=== PATIENT | female | born 1990 | race Hispanic/Latino ===

== ENCOUNTER 2019-02-26 16:48 | Inpatient (IN) | payer OTHER ==
[2019-02-26 17:21] VITALS: BMI 34.1
[2019-02-26] MEDS ORDERED: FLU VACC QS2019-20(6MOS UP)/PF 60 MCG/0.5 ML SYRINGE IM ONE (17:30)
[2019-02-26] MEDS ORDERED: Ibuprofen 800 MG TAB PO PRN (18:15)
[2019-02-26] MEDS ORDERED: NS / Oxytocin 40 units/1000ml 1,000 ML IV SCH (18:15)
[2019-02-26] MEDS ORDERED: Penicillin G Potassium 5 MILL.UNITS in Sodium Chloride 0.9% 100 ML IVPB SCH (18:15)
[2019-02-26] MEDS ORDERED: Lidocaine 1% (PF) 30 ML VIAL SC PRN (18:15)
[2019-02-26] MEDS ORDERED: NS w/ Oxytocin 10 units 500 ML IV SCH ×2 (18:15)
[2019-02-26 18:28] LABS: Hemoglobin 11.2 g/dL (12.0-16.0); Mean Corpuscular HGB CONC 34.1 g/dL (32.0-36.0); Mean Corpuscular Hemoglobin 28.5 pg (27.0-31.0); Mean Corpuscular Volume 83.5 fL (78.0-98.0); Mean Platelet Volume 10.6 fL (7.4-10.4); Platelet Count 164 thou/uL (130-400); Red Blood Cell (RBC) Count 3.94 mill/uL (4.20-5.40); White Blood Cell (WBC) Count 10.1 thou/uL (4.8-10.8)
[2019-02-26] MEDS ORDERED: Fentanyl 4 mcg/Bup 0.1% Cadd 100 ML ONE (18:58)
[2019-02-26 19:05] LABS: Syphilis Antibody Nonreactive (Nonreactive); Syphilis Antibody Index 0.05 S/CO (<1.00 Non-Reactive)
[2019-02-26 19:06] LABS: HBSAg Index 0.21 S/CO (0-0.99); Hep B Surf Ag Non-Reactive S/CO (NonReactive)
[2019-02-26] MEDS ORDERED: Acetaminophen 325 MG TAB PO SCH (21:00)
[2019-02-26] MEDS ORDERED: Ondansetron PF 4 MG/2 ML Vial ONE (21:12)
[2019-02-26] MEDS ORDERED: diphenhydrAMINE 50 MG/ML VIAL IVP PRN (21:27)
[2019-02-26] MEDS ORDERED: Ondansetron PF 4 MG/2 ML Vial IVP PRN (21:27)
[2019-02-26] MEDS ORDERED: ePHEDrine/0.9% NaCl/PF SYRINGE 50 mg/10 ml SLOW IVP PRN (21:27)
[2019-02-26] MEDS ORDERED: Naloxone HCl 0.4 mg/ml Vial IVP PRN ×2 (21:27)
[2019-02-26] MEDS ORDERED: Acetaminophen 325 MG TAB PO PRN (21:27)
[2019-02-26] MEDS ORDERED: Communication Order-Pharmacy FS SCH (21:27)
[2019-02-26] MEDS ORDERED: Fentanyl 4 mcg/Bupivacaine 0.1% Cassette 100 ML EPIDURAL SCH (21:27)
[2019-02-26] MEDS ORDERED: Lactated Ringer's 500 ML IV PRN (21:27)
[2019-02-26] MEDS ORDERED: Promethazine HCl 25 MG/ML VIAL IM PRN (21:27)
[2019-02-26] MEDS ORDERED: Ondansetron PF 4 MG/2 ML Vial SLOW IVP SCH (21:30)
[2019-02-26] MEDS: Penicillin G 2.5 MILL.units 2.5 MILL.UNITS in Premix Bag 1 BAG IVPB SCH (21:50)
[2019-02-27] MEDS ORDERED: Fentanyl 4 mcg/Bup 0.1% Cadd 100 ML ONE (02:26)
[2019-02-27] MEDS: Penicillin G 2.5 MILL.units 2.5 MILL.UNITS in Premix Bag 1 BAG IVPB SCH ×3 (03:00→17:59)
[2019-02-27] MEDS ORDERED: Lactated Ringer's 1,000 ML IV SCH (07:45)
[2019-02-27] MEDS ORDERED: Lidocaine 1% (PF) 30 ML VIAL ONE (09:24)
[2019-02-27] MEDS ORDERED: NS / Oxytocin 40 units/1000ml 1,000 ML ONE (09:24)
[2019-02-27] MEDS ORDERED: Misoprostol 200 MCG TAB ONE (09:29)
[2019-02-27] MEDS ORDERED: Carboprost 250 MCG/ML AMP ONE (09:29)
--- NOTE | 2019-02-27 09:52 | PDOC.OPDEL ---
OB Operative/Delivery Note Delivery Dr/Surgeon: Olya Pre-Delivery Diagnosis: active labor Procedure/Post Delivery Dx: spontaneous vaginal delivery Anesthesia: epidural - Additional Findings/Plan Placenta delivered: spontaneous Repaired Obstetrical Laceration: 2nd degree Estimated blood loss: 300 Compilations/Other Findings: CTSP for terminal bradycardia. Pt. urged to push with resulting of infant with good tone over 2* MLE. 100- 200 cc clot passed prior to delivery of placenta c/w terminal abruption. Placenta intact Jareth. Boggy uterus responded to uterine massage, pit drip and Methergine 0.[address] Cottrell arrived at this point. His repair to follow. Placenta to Path. Post delivery plan: routine recovery
[2019-02-27 10:04] LABS: Actual Bicarbonate (HCO3a) 23.3 mEq/L (22-28); Actual Bicarbonate (HCO3v) 25 mEq/L (22-28); Base Excess -4.8 mEq/L (-2.0 to +3.0); Base Excess (BEa) -5.2 mEq/L (-2.0 to +3.0)
[2019-02-27 10:05] LABS: pH (Cord, venous) 7.18 (7.32-7.43)
[2019-02-27] MEDS ORDERED: Methylergonovine 0.2 MG/ML VIAL ONE (10:49)
[2019-02-27] MEDS ORDERED: Adacel (T-DAP) 0.5 ML SYRINGE IM ONE (12:25)
[2019-02-27] MEDS ORDERED: Varicella virus, LIVE 0.5 ML VIAL SC ONE (12:25)
[2019-02-27] MEDS ORDERED: Benzocaine-Menthol 82.5 ML CAN TOP PRN (12:25)
[2019-02-27] MEDS ORDERED: hydrALAZINE 20 MG/ML VIAL SLOW IVP PRN (12:25)
[2019-02-27] MEDS ORDERED: Measles/Mumps/Rubella 10 MCG/0.5 ML VIAL SC ONE (12:25)
[2019-02-27] MEDS ORDERED: Methylergonovine 0.2 MG/ML VIAL IM PRN (12:25)
[2019-02-27] MEDS ORDERED: Zolpidem Tartrate 5 MG TAB PO PRN (12:25)
[2019-02-27] MEDS ORDERED: Promethazine HCl 25 MG/ML VIAL IM PRN (12:25)
[2019-02-27] MEDS ORDERED: HYDROcodone/Acetaminophen 5/325 mg Tablet PO PRN (12:25)
[2019-02-27] MEDS ORDERED: Ondansetron PF 4 MG/2 ML Vial IVP PRN (12:25)
[2019-02-27] MEDS ORDERED: Milk Of Magnesia 30 ML UDCUP PO PRN (12:25)
[2019-02-27] MEDS ORDERED: Bisacodyl 10 MG SUPP PR PRN (12:25)
[2019-02-27] MEDS ORDERED: NS / Oxytocin 40 units/1000ml 1,000 ML IV SCH (12:25)
[2019-02-27] MEDS ORDERED: Misoprostol 200 MCG TAB VAG PRN (12:25)
[2019-02-27] MEDS ORDERED: diphenhydrAMINE 25 MG CAP PO PRN (12:25)
[2019-02-27] MEDS ORDERED: Lanolin Ointment 7 GM TUBE TOP PRN (12:25)
[2019-02-27] MEDS ORDERED: Preparation H Ointment 28 GM TUBE PR PRN (12:25)
[2019-02-27] MEDS: HYDROcodone/Acetaminophen 5/325 mg Tablet PO PRN ×3 (13:05→22:19)
[2019-02-27] MEDS: Ibuprofen 800 MG TAB PO SCH ×2 (15:03→22:19)
[2019-02-27] MEDS: Ferrous Sulfate 325 MG TAB PO SCH (17:58)
[2019-02-27] MEDS ORDERED: FLU VACC QS2019-20(6MOS UP)/PF 60 MCG/0.5 ML SYRINGE IM ONE (18:00)
[2019-02-27 21:30] LABS: #Basophils 0.1 thou/uL (0.0-0.2); #Eosinphils 0.1 thou/uL (0.0-0.7); #Lymphocytes 1.1 thou/uL (1.20-3.40); #Monocytes 0.5 thou/uL (0.11-0.59); #Neutrophils 8.9 thou/uL (1.40-6.50); %Basophils 0.5 % (0.0-1.0); %Eosinophils 0.5 % (0.0-10.0); %Lymphocytes 10.6 % (21.0-51.0); %Monocytes 4.6 % (0.0-10.0); %Neutrophils 83.9 % (42.0-75.0); Hemoglobin 9.7 g/dL (12.0-16.0); Mean Corpuscular Hemoglobin 28.7 pg (27.0-31.0); Mean Corpuscular Volume 84.3 fL (78.0-98.0); Mean Platelet Volume 10.1 fL (7.4-10.4); Platelet Count 139 thou/uL (130-400); RBC Distribution Width 12.8 % (11.5-14.5); Red Blood Cell (RBC) Count 3.38 mill/uL (4.20-5.40); White Blood Cell (WBC) Count 10.6 thou/uL (4.8-10.8)
[2019-02-27 21:51] LABS: ALT (SGPT) 10 U/L (8-55); AST (SGOT) 19 U/L (5-34); Albumin 2.6 g/dL (3.5-5.0); Alkaline Phosphatase 158 U/L (40-110); Anion Gap 9 mmol/L (10-20); BUN (Urea Nitrogen) 7 mg/dL (7.0-18.7); Bilirubin, Total Less than 0.2 mg/dL (0.2-1.2); Calc. Creatinine Clearance 222 mL/min (70-130); Calcium 7.6 mg/dL (7.8-10.44); Carbon Dioxide 21 mmol/L (22-29); Chloride 111 mmol/L (98-107); Estimated GFR-MDRD Greater than 90; Globulin 2.7 g/dL (2.4-3.5); Glucose 100 mg/dL (70-105); Protein, Total 5.3 g/dL (6.0-8.3); Sodium 137 mmol/L (136-145)
--- NOTE | 2019-02-27 22:10 | ULT ---
Sonogram abdomen limited HISTORY: Abdominal pain. Evaluate for free fluid. FINDINGS: Small amount of free fluid is demonstrated within each quadrant of the abdomen and within t he pelvis. Estimated at 1 to 2 L.
--- NOTE | 2019-02-27 22:12 | ULT ---
Pelvic sonogram transabdominal imaging HISTORY: Recent delivery. Pelvic pain. FINDINGS .: Uterus has a heterogeneous echotexture and measures up to 16.4 cm. Endometrium is thin wi thout fluid evident. Ovaries not visualized. Small amount of free fluid is apparent within the pelvis. IMPRESSION: Expected appearance of the pelvis.
[2019-02-27] MEDS: Docusate Calcium (SURFAK) 240 MG CAP PO SCH (23:06)
[2019-02-27] MEDS ORDERED: Morphine 4 MG/ML VIAL SLOW IVP SCH (23:15)
[2019-02-27] MEDS ORDERED: Sodium Chloride 0.9% 10 ML ONE (23:22)
--- NOTE | 2019-02-27 23:35 | RAD ---
Chest one view HISTORY: Dyspnea. FINDINGS: Cardiac silhouette is magnified by projection. Pulmonary vasculature is unremarkable. Media stinum is midline. No confluent space consolidation or evidence of pneumothorax. IMPRESSION: Normal exam.
--- NOTE | 2019-02-28 00:04 | CT ---
CT abdomen and pelvis noncontrast HISTORY: Abdominal pain. Recent vaginal delivery. Minimal bibasilar dependent lung atelectasis. There are tiny pockets of gas within the nondependent p ortion of the peritoneal cavity. Small pockets also within the pelvis adjacent to the urinary bladder and uterus which is enlarged and heterogeneous, consistent with recent delivery. Small amount of free fluid is also present within the pelvis and extends up the right paracolic gutter to the liver. Hyperdense material in the dependent portion of the gallbladder lumen. Postoperative changes of the stomach. No evidence of bowel obstruction. Gas is present within the central spinal canal of the lumbar spine from recent epidural injection. IMPRESSION: Small pockets of intraperitoneal gas and small amount of intraperitoneal fluid, likely re lated to recent delivery. Given the very small amount, continued follow-up would likely be prudent. Central canal gas from recent epidural injection. Cholelithiasis.
[2019-02-28] MEDS: Simethicone Chewable 80 MG TAB PO PRN ×3 (00:34→21:02)
[2019-02-28 03:00] LABS: #Eosinphils 0.1 thou/uL (0.0-0.7); #Lymphocytes 1.8 thou/uL (1.20-3.40); #Monocytes 0.4 thou/uL (0.11-0.59); %Basophils 0.4 % (0.0-1.0); %Eosinophils 0.8 % (0.0-10.0); %Lymphocytes 19.5 % (21.0-51.0); %Monocytes 4.2 % (0.0-10.0); Hemoglobin 9.1 g/dL (12.0-16.0); Mean Corpuscular HGB CONC 33.6 g/dL (32.0-36.0); Mean Corpuscular Hemoglobin 28.8 pg (27.0-31.0); Mean Corpuscular Volume 85.8 fL (78.0-98.0); Mean Platelet Volume 10.3 fL (7.4-10.4); Platelet Count 130 thou/uL (130-400); RBC Distribution Width 12.9 % (11.5-14.5); Red Blood Cell (RBC) Count 3.17 mill/uL (4.20-5.40); White Blood Cell (WBC) Count 9.3 thou/uL (4.8-10.8)
[2019-02-28 03:01] LABS: Hemoglobin 9.2 g/dL (12.0-16.0); Mean Corpuscular HGB CONC 33.1 g/dL (32.0-36.0); Mean Corpuscular Hemoglobin 28.5 pg (27.0-31.0); Mean Platelet Volume 10.6 fL (7.4-10.4); Platelet Count 133 thou/uL (130-400); Red Blood Cell (RBC) Count 3.25 mill/uL (4.20-5.40); White Blood Cell (WBC) Count 9.4 thou/uL (4.8-10.8)
[2019-02-28] MEDS ORDERED: Sodium Chloride 0.9% 10 ML ONE ×3 (04:05→23:37)
[2019-02-28] MEDS: Morphine 4 MG/ML VIAL SLOW IVP PRN ×2 (04:10→15:35)
[2019-02-28] MEDS: Ibuprofen 800 MG TAB PO SCH ×3 (05:42→20:57)
[2019-02-28 06:22] LABS: #Eosinphils 0.1 thou/uL (0.0-0.7); #Lymphocytes 1.5 thou/uL (1.20-3.40); #Monocytes 0.3 thou/uL (0.11-0.59); #Neutrophils 6.2 thou/uL (1.40-6.50); %Basophils 0.2 % (0.0-1.0); %Eosinophils 1.4 % (0.0-10.0); %Lymphocytes 18.4 % (21.0-51.0); %Monocytes 4.1 % (0.0-10.0); %Neutrophils 75.9 % (42.0-75.0); Hemoglobin 9.3 g/dL (12.0-16.0); Mean Corpuscular HGB CONC 33.1 g/dL (32.0-36.0); Mean Corpuscular Hemoglobin 28.4 pg (27.0-31.0); Mean Corpuscular Volume 85.8 fL (78.0-98.0); Mean Platelet Volume 10.2 fL (7.4-10.4); Platelet Count 133 thou/uL (130-400); Red Blood Cell (RBC) Count 3.27 mill/uL (4.20-5.40); White Blood Cell (WBC) Count 8.2 thou/uL (4.8-10.8)
[2019-02-28] MEDS: Docusate Calcium (SURFAK) 240 MG CAP PO SCH ×2 (07:33→20:56)
[2019-02-28] MEDS: HYDROcodone/Acetaminophen 5/325 mg Tablet PO PRN ×4 (07:33→22:09)
[2019-02-28] MEDS: Ferrous Sulfate 325 MG TAB PO SCH ×2 (07:33→17:07)
--- NOTE | 2019-02-28 16:14 | ULT ---
RIGHT UPPER QUADRANT ULTRASOUND CLINICAL HISTORY: Severe right-sided abdominal pain while lying flat. COMPARISON: CT the abdomen and pelvis without contrast dated February 27, 2019 at 11:50 PM and a right upper quadrant ultrasound dated February 27, 2019 9:35 PM FINDINGS: Liver:There is mild intrahepatic biliary ductal dilatation now present. The liver is mildly enlarged measuring 20 cm. Intrahepatic bile ducts: There is mild intrahepatic biliary ductal dilatation which is new. Common bile duct: 4.3 mm. Gallbladder: The gallbladder is moderately distended now measuring 11.3 cm in its greatest longitudin al dimension. There are numerous layered stones within the gallbladder. There is mild gallbladder wall thickening measuring 3.3 mm. No definite pericholecystic fluid is evident. Ramirez's sign:Sonographic Ramirez's sign could not be assessed due to patient being in continuous ventura re pain. Main portal vein:Patent with hepatopedal flow. Pancreas:Obscured Right kidney: Right kidney measures 10.3 x 4.5 x 4.9 cm. No focal renal lesion or hydronephrosis. Additional findings: None. IMPRESSION: Findings suspicious for acute calculus cholecystitis. The gallbladder is now moderately distended wit h numerous layering stones and gallbladder wall thickening. Sonographic Ramirez sign could not be definitely assessed due to the patient being in continuous severe pain during the examination. There has been interval development of mild intrahepatic biliary ductal dilatation. The common bile duct is of normal caliber.
--- NOTE | 2019-02-28 17:20 | PRG ---
DATE OF SERVICE: 02/28/2019 I am seeing Ms. Trejo, at bedside is her and her nurse. She just returned from the abdominal ultrasound, which reveals moderately distended gallbladder with a 3.3 mm gallbladder wall thickening, but no pericholecystic fluid present. Intraluminal gallstones also noted. Common bile duct is normal at 4.3 mm in diameter. Multiple intraluminal gallstones also noted. I discussed the above findings with Ms. Trejo and her . In the absence of normal LFTs and normal white blood cell count and what started as a vague right lower quadrant and ultimately right upper quadrant abdominal pain, obtaining a HIDA scan will be important to rule out cystic ductal obstruction, which if present will warrant laparoscopic cholecystectomy in this hospital setting. Alternatively, the patient could be treated conservatively with the hope that there is no recurrent postprandial abdominal pain. If HIDA scan and ultimately laparoscopic cholecystectomy are undertaken, I have informed the patient and her of the potential risks and benefits of the surgery to include, but not limited to bleeding, infection, injury to bile duct or surrounding structures. The patient and her have indicated understanding information I provided her today in the presence of her nurse. She and her will deliberate over this and determine which options to take. Job ID: [id number]
--- NOTE | 2019-02-28 20:36 | CON ---
DATE OF CONSULTATION: 02/28/2019 REQUESTING PHYSICIAN: Nadeem Cottrell MD. HISTORY OF PRESENT ILLNESS: This is a 28-year-old woman who is day # 1, status post spontaneous vaginal delivery. Approximately 10 hours after delivery , the patient developed sudden onset right lower quadrant abdominal pain, which radiated to right flank and upwards to the right chest with difficulty breathing. Overnight, the pain has subsided somewhat and now mostly right upper quadrant abdominal pain, which intensified yesterday after eating. Pain is associated with some nausea, but no emesis. Today, she rates her pain at 6-7/10. She denies any fevers or chills. She currently denies any dyspnea or syncope. PAST MEDICAL HISTORY: Previously hypertensive, currently on no medications. 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 SOCIAL HISTORY: She had approximately 10 pack cigarette smoking history and quit smoking one year ago. She denies any ethanol or illicit drug abuse. PRE-HOSPITAL MEDICATIONS: Includes vitamins. ALLERGIES: THE PATIENT DENIES ANY KNOWN DRUG ALLERGIES. REVIEW OF SYSTEMS: Ten-point review of systems essentially unremarkable except as stated in past medical history and chief complaint. PHYSICAL EXAMINATION: GENERAL: Reveals a 28-year-old normally developed woman, who is otherwise coherent and interactive and appears stated age. The patient is alert and oriented x3, appears to be in no acute distress at time of my evaluation. VITAL SIGNS: Include blood pressure 105/59, pulse 58, respiratory rate is 18, temperature 98.2 degrees Fahrenheit, oxygen saturation 98% on room air. HEART: Reveals regular rate and rhythm. LUNGS: Clear to auscultation bilaterally. Breathing, regular and nonlabored. ABDOMEN: Soft and immediately . Uterus palpated below the umbilicus. She has moderate right upper quadrant tenderness to palpation with no Ramirez sign or peritoneal signs on examination. NEUROLOGIC: Reveals no focal deficits present. LABORATORY FINDINGS: Today include a CBC with 8200 white blood cells, hemoglobin and hematocrit 9.3 and 28.0 respectively. Platelet count is 133,000. I have personally reviewed CT scan of the abdomen and pelvis, which was obtained last night revealing a small amount of free fluid in the pelvis with small intraperitoneal gas of undetermined etiology. There is some hyperdense material in the gallbladder lumen, likely gallstones versus dense sludge. IMPRESSION: 1. Right upper quadrant abdominal pain of undetermined etiology, likely biliary colic. 2. day #1 for spontaneous vaginal delivery. 3. Acute blood loss anemia, stable. RECOMMENDATIONS: Agree with right upper quadrant abdominal ultrasound to rule out biliary disease. General Surgery will continue to follow the patient and make further recommendations following completion of the right upper quadrant abdominal ultrasound. If warranted, laparoscopic cholecystectomy will be recommended. Above findings and plan discussed with the patient and her at bedside. They indicated understanding of information given. I have answered their questions. Thank you again, Dr. Cottrell for allowing me the opportunity to participate in the care of this patient. Job ID: [id number] [facility]
[2019-02-28] MEDS ORDERED: Calcium Carbonate 500 MG ChewTAB PO PRN (20:49)
[2019-03-01] MEDS ORDERED: Sodium Chloride 0.9% 10 ML ONE ×2 (00:01→00:47)
[2019-03-01] MEDS: Sodium Chloride 0.9% 1,000 ML IV SCH ×3 (00:30→12:41)
--- NOTE | 2019-03-01 01:19 | PRG ---
DATE OF SERVICE: 02/28/2019 SUBJECTIVE: The patient was seen this evening, sitting up in bed, no signs of acute distress. She is day 1. She reports she has right upper quadrant abdominal pain when she moves and she did have increased pain after she ate as well. Otherwise, she reports she is doing better than before. OBJECTIVE: VITAL SIGNS: Temperature 98.6, pulse 82, respirations 12, oxygen saturation 98% on room air, blood pressure 112/62. GENERAL: Well-appearing young female, sitting up in bed with no signs of acute distress. PULMONARY: No signs of acute respiratory distress. ASSESSMENT: 1. Acute right upper quadrant abdominal pain, likely secondary to acute acalculous cholecystitis. 2. Post day 1. PLAN: The patient will be n.p.o. after midnight. She will have normal saline at 120 an hour. She is pending a HIDA scan to be completed in the morning. IV morphine has been discontinued as it cannot be given before a HIDA scan is completed. After the scan is complete, the patient can have IV morphine again. Dr. Dickey will re-evaluate the patient and update her on the plan after the HIDA scan is completed. If you have any questions or concerns in the meantime, CARE ASSISTANT team or nursing can reach out to Dr. Dickey's team by paging the trauma pager. This patient was discussed with Dr. Dickey before this dictation. Job ID: [id number]
[2019-03-01] MEDS: HYDROcodone/Acetaminophen 5/325 mg Tablet PO PRN ×2 (04:04→12:41)
[2019-03-01 05:29] LABS: ALT (SGPT) 13 U/L (8-55); AST (SGOT) 18 U/L (5-34); Albumin 2.8 g/dL (3.5-5.0); Alkaline Phosphatase 151 U/L (40-110); Anion Gap 9 mmol/L (10-20); BUN (Urea Nitrogen) 5 mg/dL (7.0-18.7); Bilirubin, Direct 0.1 mg/dL (0.1-0.3); Bilirubin, Total 0.2 mg/dL (0.2-1.2); Calc. Creatinine Clearance 207 mL/min (70-130); Calcium 8.2 mg/dL (7.8-10.44); Carbon Dioxide 25 mmol/L (22-29); Chloride 108 mmol/L (98-107); Estimated GFR-MDRD Greater than 90; Glucose 74 mg/dL (70-105); Lipase 18 U/L (8-78); Magnesium 1.6 mg/dL (1.6-2.6); Phosphorus 3.2 mg/dL (2.3-4.7); Potassium 4.2 mmol/L (3.5-5.1); Protein, Total 5.9 g/dL (6.0-8.3); Sodium 138 mmol/L (136-145)
[2019-03-01] MEDS: Ibuprofen 800 MG TAB PO SCH ×2 (06:33→14:29)
[2019-03-01] MEDS ORDERED: Lidocaine 1% PF 5 ML VIAL ONE (09:23)
[2019-03-01] MEDS ORDERED: PROPOFOL 200 MG/20 ML VIAL ONE (09:23)
[2019-03-01] MEDS ORDERED: Dexamethasone 20 MG/5 ML VIAL ONE (09:23)
[2019-03-01] MEDS ORDERED: Rocuronium Bromide 10 MG/ML (10ML VIAL) ONE (09:23)
[2019-03-01] MEDS ORDERED: Glycopyrrolate 0.2 MG/ML 5 ML SYRINGE ONE (09:23)
[2019-03-01] MEDS ORDERED: Ondansetron PF 4 MG/2 ML Vial ONE (09:23)
[2019-03-01] MEDS ORDERED: Ketorolac Tromethamine 30 MG/ML VIAL ONE (09:23)
--- NOTE | 2019-03-01 11:31 | NM ---
HEPATOBILIARY SCAN: HISTORY:Right upper quadrant pain RADIOPHARMACEUTICAL: 5.5 mCi Technetium 99m Mebrofenin injected intravenously FINDINGS: There is normal tracer extraction by the liver with normal excretion into the biliary tracts and smal l bowel loops and normal filling of the gallbladder. The calculated gallbladder ejection fraction following an oral fatty meal measures 4%. IMPRESSION:Chronic cholecystitis/gallbladder dyskinesia
[2019-03-01] MEDS: Docusate Calcium (SURFAK) 240 MG CAP PO SCH ×2 (12:09→23:10)
[2019-03-01] MEDS: Ferrous Sulfate 325 MG TAB PO SCH ×2 (12:09→15:26)
[2019-03-01] MEDS: Simethicone Chewable 80 MG TAB PO PRN (15:29)
--- NOTE | 2019-03-01 17:11 | PRG ---
DATE OF SERVICE: 03/01/2019 SUBJECTIVE: Ms. Trejo is a 28-year-old woman, who is day #2, status post spontaneous vaginal delivery of a healthy baby. The patient has developed right upper quadrant abdominal pain. Abdominal ultrasound revealed intraluminal gallstones in a distended gallbladder with normal common bile duct size. LFTs were also normal. HIDA scan was performed this morning, which was remarkable for an ejection fraction of 4% consistent with chronic cholecystitis. The patient is pending laparoscopic cholecystectomy. Currently, the pain is controlled with analgesics. She has remained hemodynamically stable overnight. OBJECTIVE: VITAL SIGNS: This morning, blood pressure 117/64, pulse 59, respiratory rate is 20, temperature 98.1 degrees Fahrenheit, oxygen saturation 100% on room air. ABDOMEN: Soft, right upper quadrant tenderness to palpation with no peritoneal signs on examination. Liver and spleen remain nonpalpable below costal margin. LABORATORY FINDINGS: Today include metabolic profile; sodium 138, potassium 4.2, chloride 108, bicarb 25, BUN 5, creatinine 0.59, glucose is 74, AST and ALT normal at 18 and 13 respectively. Total bilirubin normal at 0.2. Serum lipase is also normal at 18. IMPRESSION: 1. day #2, status post spontaneous vaginal delivery. 2. Chronic cholecystitis with cholelithiasis. 3. The patient was offered two options, one was conservative management with hope that the right upper quadrant abdominal pain would resolve and the patient is able to tolerate diet. 4. Alternatively, laparoscopic cholecystectomy was offered. The patient declined conservative management and wishes to proceed with laparoscopic cholecystectomy. She would also full knowledge that the potential risks include, but not limited to bleeding, infection, injury to bile duct or surrounding structures. This information given to the patient in the presence of her and her nurse at bedside. I answered her questions. The patient is going to consent for the surgical intervention. Job ID: [id number]
[2019-03-01] MEDS ORDERED: Sodium Chloride 0.9% 100 ML ONE (18:10)
[2019-03-01] MEDS ORDERED: cefOXitin 2 GM VIAL ONE (18:10)
[2019-03-01] MEDS ORDERED: Ondansetron HCl/PF 4 MG/2 ML Vial IVP PRN ×2 (19:17→21:08)
[2019-03-01] MEDS ORDERED: Fentanyl 100 MCG/2 ML VIAL ONE ×2 (19:23→20:01)
[2019-03-01] MEDS ORDERED: Bupivacaine 0.25% HCL 30 ML VIAL ONE (19:59)
[2019-03-01] MEDS ORDERED: Lidocaine 1% w/Epinephrine 1:100K 20 ML VIAL ONE (19:59)
[2019-03-01] MEDS ORDERED: HYDROmorphone 0.5 MG/0.5 ML SYRINGE ONE (20:01)
--- NOTE | 2019-03-01 21:03 | PDOC.PP ---
Post Progress Note Post Day #: 1 PO intake tolerated: yes Flatus: yes Ambulation: yes Weight Weight 205 lb - Physical Examination General: NAD Cardiovascular: no m/r/g, RRR Respiratory: clear to auscultation bilaterally, non-labored breathing Abdominal: + bowel sounds, lochia (Patient complaining of abdomianl pain, right> left, worse when she tries to lay flat.) Extremities: negative homans (B) Skin: CS incision dry & intact, no rash Neurological: no gross focal deficits Psychiatric: A&Ox3, normal affect Result Diagrams: 02/28/19 06:02 03/01/19 04:29 Additional Labs: Post Labs Blood Type O POSITIVE 02/26/19 19:41 Hep Bs Antigen Non-Reactive S/CO (NonReactive) 02/26/19 18:15 - Assessment/Plan Ultrasound of abdomen and pelvis completed, CT of abdomen completed. Stable Blood counts noted. No Leukocytosis. No Fever. Normal BP and pulse. Pulse Ox also WNL at 99% on room air. General Surgery was consulted to further evaluate cholilithiasis and gallbladder disease.
--- NOTE | 2019-03-01 21:05 | PDOC.PP ---
Post Progress Note Post Day #: 2 Weight Weight 205 lb Result Diagrams: 02/28/19 06:02 03/01/19 04:29 Additional Labs: Post Labs Blood Type O POSITIVE 02/26/19 19:41 Hep Bs Antigen Non-Reactive S/CO (NonReactive) 02/26/19 18:15 - Assessment/Plan Patient is off the floor currently, undergoing gallbladder surgery with the general surgery team. From OB standpoint, patient may be discharged to home once stable per general surgery. OB follow-up in 2 weeks.
[2019-03-01] MEDS ORDERED: Morphine 4 MG/ML VIAL SLOW IVP PRN (21:08)
[2019-03-01] MEDS ORDERED: Ondansetron PF 4 MG/2 ML Vial IVP PRN (21:08)
[2019-03-01] MEDS ORDERED: Dextrose 5% in Water 1,000 ML IV PRN (21:08)
[2019-03-01] MEDS ORDERED: Dextrose 50% Abboject 50 ML SYRINGE SLOW IVP PRN (21:08)
[2019-03-01] MEDS ORDERED: HYDROmorphone 2 MG/ML VIAL SLOW IVP PRN (21:08)
[2019-03-01] MEDS ORDERED: Promethazine HCl 25 MG/ML VIAL IM PRN ×2 (21:08)
[2019-03-01] MEDS ORDERED: Calcium Carbonate 500 MG ChewTAB PO PRN (21:08)
[2019-03-01] MEDS ORDERED: Promethazine HCl 25 MG/ML VIAL SLOW IVP PRN (21:08)
[2019-03-01] MEDS ORDERED: PACU-Morphine 4MG/ML VIAL SLOW IVP PRN (21:08)
[2019-03-01] MEDS ORDERED: Mag-Al 1200 mg/1200 mg/30 ML UDCUP PO PRN (21:08)
[2019-03-01] MEDS ORDERED: hydrALAZINE 20 MG/ML VIAL SLOW IVP PRN (21:08)
[2019-03-01] MEDS: Famotidine 20 MG TAB PO SCH (22:34)
[2019-03-01] MEDS: D5 1/2 NS w/20 mEq KCL 1,000 ML IV SCH (22:46)
[2019-03-01] MEDS: Famotidine/PF 20 mg/2ml Vial SLOW IVP SCH (22:46)
[2019-03-02] MEDS: Morphine 2 MG/ML SYRINGE SLOW IVP PRN ×3 (00:49→05:45)
[2019-03-02] MEDS: D5 1/2 NS w/20 mEq KCL 1,000 ML IV SCH (05:43)
[2019-03-02] MEDS: Ferrous Sulfate 325 MG TAB PO SCH (09:27)
[2019-03-02] MEDS: Famotidine 20 MG TAB PO SCH (09:27)
[2019-03-02] MEDS: HYDROcodone/Acetaminophen 10/325 mg Tablet PO PRN ×2 (09:27→13:17)
[2019-03-02] MEDS: Famotidine/PF 20 mg/2ml Vial SLOW IVP SCH (09:28)
[2019-03-02] MEDS ORDERED: Simethicone Chewable 80 MG TAB PO PRN (09:46)
--- NOTE | 2019-03-02 10:25 | PDOC.GSPN ---
Surgery Progress Note: Obj - Vital signs Vital signs: Vital Signs - Most Recent Temp Pulse Resp BP Pulse Ox 98.7 F 65 20 120/67 98 03/02/19 07:48 03/02/19 07:48 03/02/19 07:48 03/02/19 07:48 03/02/19 07:48 - Physical Exam General: no distress Respiratory: clear to auscultation Abdomen: soft, non tender, nondistended Surgery Progress Note: Results - Labs Result Diagrams: 02/28/19 06:02 03/01/19 04:29 Lab results: Laboratory Results - last 24 hr 03/01/19 23:30 POC Glucose 106 Surgery Progress Note: A/P - Problem (1) Cholecystitis Current Visit: Yes Code(s): K81.9 - CHOLECYSTITIS, UNSPECIFIED Status: Acute - Plan Plan: POD 1 -DC today -sent norco 7.5 mg to [facility] -f/u 2 wks
[2019-03-02 11:50] VITALS: BP 122/74; TEMP 98.3
--- NOTE | 2019-03-02 13:32 | OP ---
DATE OF PROCEDURE: 03/01/2019 PREOPERATIVE DIAGNOSIS: Acute cholecystitis. POSTOPERATIVE DIAGNOSIS: Acute cholecystitis. PROCEDURE PERFORMED: Laparoscopic cholecystectomy. ANESTHESIA: General. ESTIMATED BLOOD LOSS: Minimal. COMPLICATIONS: None. SPECIMEN: Gallbladder. FINDINGS: Chronic cholecystitis. PROCEDURE IN DETAIL: The patient was taken to the operating room and laid supine on the operating room table. After general anesthetic was obtained, the abdomen was prepped and draped in a sterile fashion. A curved incision was made below the umbilicus. Cautery was used to dissect down to the umbilical fascia. Umbilical fascia was incised and held up using a Fly. The abdominal cavity was entered using a Catalina clamp. Holding stitch of Vicryl was placed on each side of the fascia. Melton trocar was placed. High-flow pneumoperitoneum was obtained. An upper midline 5 mm port and 2 right upper quadrant 5 mm ports were placed under direct camera visualization. The gallbladder was retracted from the gallbladder fossa. The peritoneum of the gallbladder was opened anteriorly and posteriorly. The critical view triangle was seen showing only the cystic duct and cystic artery branching from medial to lateral. There were no other branching structures. Two clips were placed proximally on the cystic duct and one laterally. It was cut using laparoscopic scissors. The cystic artery was taken in the same way. Electrocautery was then used to dissect the gallbladder out of the gallbladder fossa. The gallbladder was placed in an Endo catch bag and brought out through the Melton. There was no bleeding or bile in the liver bed. The cystic duct stump and cystic artery stump were intact, without evidence of extravasation or bleeding. All port sites were infiltrated using local anesthesia. All ports were removed under camera visualization. Pneumoperitoneum was let down. The Vicryl was used to close the fascial defect below the umbilicus. All incisions were irrigated and closed using 4-0 Monocryl and Dermabond. The patient was en route to Recovery in stable condition. All instrument counts, needle counts and lap counts were correct. Job ID: [id number]
== END 2019-03-02 14:12 | disposition home or self-care (01) | DRG 768 ==
LOC: L&D/OP 16:48 → L&D 19:02 → 3SW 02-27 12:53
PROVIDERS: ADMIT Obstetrics & Gynecology; ATTEND Obstetrics & Gynecology
PROC: 10E0XZZ Delivery of Products of Conception, External Approach (ICD-10-PCS; 2019-02-27)
PROC: 0KQM0ZZ Repair Perineum Muscle, Open Approach (ICD-10-PCS; 2019-02-27)
PROC: 0FT44ZZ Resection of Gallbladder, Percutaneous Endoscopic Approach (ICD-10-PCS; principal; 2019-03-02)
DX: O99.62 Diseases of the digestive system complicating childbirth (principal); Z37.0 Single live birth; D62 Acute posthemorrhagic anemia; K80.12 Calculus of gallbladder with acute and chronic cholecystitis without obstruction; O45.93 Premature separation of placenta, unspecified, third trimester; O90.81 Anemia of the puerperium; O70.1 Second degree perineal laceration during delivery; Z87.891 Personal history of nicotine dependence; Z3A.38 38 weeks gestation of pregnancy
CPT/HCPCS: 36415; 36416; 51702; 71045; 74176; 76705; 76857; 78227; 80048; 80053; 80076; 82805; 83690; 83735; 84100; 85025; 85027; 86780; 86850; 86900; 86901; 87340; 88304; 88307; 99285; A9537; J0694; J1100; J1170; J1885; J2001; J2210; J2270; J2405; J2540; J2590; J2704; J3010; J3490; S0020; S0028

== ENCOUNTER 2020-03-03 03:24 | Emergency (ER) | payer MEDICAID, SELFPAY ==
[2020-03-03 03:55] LABS: Bacteria/HPF None Seen HPF (None Seen); Bilirubin Negative (Negative); Blood, Urine Negative (Negative); Clarity Clear (Clear); Glucose, Urine (Dipstick) Normal (Negative); Ketone, Urine Negative (Negative); Leukocyte 25 Leu/uL (Negative); Mucous/LPF Rare LPF (<2+); Nitrite Negative (Negative); Protein, Urine (Dipstick) 20 mg/dL (Neg-Trace); RBC/HPF 0-3 HPF (0-3); Specific Gravity, Urine 1.017 (1.002-1.036); Squamous Epithelial 0-3 HPF (0-3); Urobilinogen Normal mg/dL (Less than 2); pH, Urine 5.5 (5.0-9.0)
[2020-03-03] MEDS ORDERED: Boostrix 0.5 ML (Tdap) VIAL ONE (03:55)
[2020-03-03 04:02] LABS: Amphetamine Not Detected (NotDetected); Barbiturates Screen Not Detected (NotDetected); Benzodiazepine Screen Not Detected (NotDetected); Cocaine Metabolite Screen Not Detected (NotDetected); Medtox Control Line Valid? VALID (VALID); Medtox Reader # READER 4; Methadone Not Detected (NotDetected); Methamphetamine Not Detected (NotDetected); Opiate Screen Detected (NotDetected); Oxycodone Screen Not Detected (NotDetected); Phencyclidine (PCP) Not Detected (NotDetected); THC/Cannabinoid Screen Not Detected (NotDetected); Tricyclic Screen Not Detected (NotDetected)
[2020-03-03 04:22] LABS: #Basophils 0.1 thou/uL (0.0-0.2); #Eosinphils 0.1 thou/uL (0.0-0.7); #Lymphocytes 1.2 thou/uL (1.20-3.40); #Monocytes 0.3 thou/uL (0.11-0.59); #Neutrophils 4.3 thou/uL (1.40-6.50); %Basophils 1.2 % (0.0-1.0); %Lymphocytes 19.9 % (21.0-51.0); %Neutrophils 72.8 % (42.0-75.0); BHCG - Serum Negative (NEGATIVE); Hemoglobin 10.8 g/dL (12.0-16.0); Mean Corpuscular HGB CONC 32.5 g/dL (32.0-36.0); Mean Corpuscular Hemoglobin 25.7 pg (27.0-31.0); Mean Corpuscular Volume 79.1 fL (78.0-98.0); Mean Platelet Volume 9.2 fL (7.4-10.4); Platelet Count 234 thou/uL (130-400); Pregs Control Background? CLEAR/WHITE (CLR/WHITE); Pregs Control Bar Appear? YES (CONTROL BAR); RBC Distribution Width 12.2 % (11.5-14.5); Red Blood Cell (RBC) Count 4.22 mill/uL (4.20-5.40)
[2020-03-03 04:28] LABS: ALT (SGPT) 13 U/L (8-55); AST (SGOT) 15 U/L (5-34); Alkaline Phosphatase 67 U/L (40-110); Anion Gap 16 mmol/L (10-20); BUN (Urea Nitrogen) 10 mg/dL (7.0-18.7); Bilirubin, Total Less than 0.2 mg/dL (0.2-1.2); Calc. Creatinine Clearance 0 mL/min (70-130); Calcium 8.7 mg/dL (7.8-10.44); Carbon Dioxide 19 mmol/L (22-29); Chloride 112 mmol/L (98-107); Globulin 3.2 g/dL (2.4-3.5); Glucose 107 mg/dL (70-105); Potassium 3.7 mmol/L (3.5-5.1); Protein, Total 7.2 g/dL (6.0-8.3); Sodium 143 mmol/L (136-145)
[2020-03-03 04:29] LABS: Acetaminophen Less than 6.0 mcg/mL (10.0-30.0); Alcohol 160 mg/dL (Less than 10); Salicylate Less than 8.0 mg/dL (15.0-30.0)
[2020-03-03 04:54] LABS: Thyroid Stimulating Hormone 0.5605 uIU/mL (0.35-4.94)
[2020-03-03] MEDS ORDERED: Ondansetron ODT 4 MG TAB ONE (07:42)
[2020-03-03] MEDS ORDERED: Acetaminophen 500 MG TAB ONE (10:34)
== END 2020-03-03 14:20 | disposition short-term general hospital (02) ==
LOC: ERS 03:24
DX: S51.812A Laceration without foreign body of left forearm, initial encounter (principal); F29 Unspecified psychosis not due to a substance or known physiological condition; Z23 Encounter for immunization; F17.210 Nicotine dependence, cigarettes, uncomplicated; W26.9XXA Contact with unspecified sharp object(s), initial encounter
CPT/HCPCS: 12004; 36415; 51701; 80053; 80306; 80307; 81003; 81015; 84443; 84703; 85025; 90471; 90715; Q0162

== ENCOUNTER → 2021-09-01 | Emergency (ER) | payer SELFPAY ==
[~2021-09-01] MED LIST: Acetaminophen 325 MG TAB ONE; Bacitracin 1 PK ONE; Boostrix 0.5 ML (Tdap) VIAL ONE; Ibuprofen 200 MG TAB ONE; Lidocaine 1% PF 5 ML VIAL ONE; Lidocaine 1% w/Epinephrine 1:100K 20 ML VIAL ONE
[2021-09-01 06:52] LABS: #Basophils 0.1 thou/uL (0.0-0.2); #Eosinphils 0.1 thou/uL (0.0-0.7); #Lymphocytes 1.5 thou/uL (1.20-3.40); #Monocytes 0.4 thou/uL (0.11-0.59); #Neutrophils 5.1 thou/uL (1.40-6.50); %Basophils 0.9 % (0.0-1.0); %Eosinophils 1.2 % (0.0-10.0); %Lymphocytes 20.3 % (21.0-51.0); %Monocytes 5.8 % (0.0-10.0); %Neutrophils 71.8 % (42.0-75.0); Hemoglobin 10.4 g/dL (12.0-16.0); Mean Corpuscular HGB CONC 32.8 g/dL (32.0-36.0); Mean Corpuscular Hemoglobin 25.7 pg (27.0-31.0); Mean Corpuscular Volume 78.3 fL (78.0-98.0); Mean Platelet Volume 8.2 fL (7.4-10.4); Platelet Count 298 thou/uL (130-400); RBC Distribution Width 14.1 % (11.5-14.5); Red Blood Cell (RBC) Count 4.05 mill/uL (4.20-5.40); White Blood Cell (WBC) Count 7.1 thou/uL (4.8-10.8)
[2021-09-01 07:15] LABS: ALT (SGPT) 17 U/L (8-55); AST (SGOT) 16 U/L (5-34); Albumin 4.1 g/dL (3.5-5.0); Alkaline Phosphatase 76 U/L (40-110); Anion Gap 13 mmol/L (10-20); BUN (Urea Nitrogen) 6 mg/dL (7.0-18.7); Bilirubin, Total 0.2 mg/dL (0.2-1.2); Calc. Creatinine Clearance 0 mL/min (70-130); Calcium 9.1 mg/dL (7.8-10.44); Carbon Dioxide 20 mmol/L (22-29); Chloride 113 mmol/L (98-107); Glucose 100 mg/dL (70-105); Potassium 3.4 mmol/L (3.5-5.1); Protein, Total 7.1 g/dL (6.0-8.3); Sodium 143 mmol/L (136-145)
[2021-09-01 07:16] LABS: Acetaminophen Less than 10.0 mcg/mL (10.0-30.0); Alcohol 176 mg/dL (Less than 10); Salicylate Less than 8.0 mg/dL (15.0-30.0)
[2021-09-01 08:36] LABS: Pregnancy Test - Urine (BHCG) Negative (Negative); Pregu Control Background? CLEAR/WHITE (CLR/WHITE); Pregu Control Bar Appear? YES (CONTROL BAR); Specific Gravity 1.012 (1.002-1.036)
[2021-09-01 08:45] LABS: Amphetamine Not Detected (NotDetected); Barbiturates Screen Not Detected (NotDetected); Benzodiazepine Screen Not Detected (NotDetected); Cocaine Metabolite Screen Not Detected (NotDetected); Methadone Not Detected (NotDetected); Methamphetamine Not Detected (NotDetected); Opiate Screen Not Detected (NotDetected); Oxycodone Screen Not Detected (NotDetected); Phencyclidine (PCP) Not Detected (NotDetected); THC/Cannabinoid Screen Not Detected (NotDetected); Tricyclic Screen Not Detected (NotDetected)
[2021-09-01 17:48] LABS: SARS-CoV-2 NAA Rapid Test Not Detected (NotDetected)
== END ==
LOC: ERS 06:11
DX: S51.812A Laceration without foreign body of left forearm, initial encounter (principal); F17.210 Nicotine dependence, cigarettes, uncomplicated; Z20.822 Contact with and (suspected) exposure to COVID-19; X78.9XXA Intentional self-harm by unspecified sharp object, initial encounter
CPT/HCPCS: 12004; 36415; 51701; 80053; 80306; 80307; 81025; 85025; 90715; 93005; U0002

== ENCOUNTER 2022-06-17 18:57 | Emergency (ER) | payer SELFPAY | END 2022-06-17 21:19 | disposition home or self-care (01) | LOC: ERS 18:57 | DX: F19.10 Other psychoactive substance abuse, uncomplicated (principal); N39.0 Urinary tract infection, site not specified; F17.210 Nicotine dependence, cigarettes, uncomplicated | CPT/HCPCS: 99284 ==

== ENCOUNTER 2022-06-21 11:30 | Emergency (ER) | payer SELFPAY ==
[2022-06-21 13:44] LABS: #Basophils 0.1 thou/uL (0.0-0.2); #Eosinphils 0.1 thou/uL (0.0-0.7); #Monocytes 0.4 thou/uL (0.11-0.59); #Neutrophils 7.1 thou/uL (1.40-6.50); %Basophils 0.8 % (0.0-1.0); %Eosinophils 0.8 % (0.0-10.0); %Lymphocytes 11.8 % (21.0-51.0); %Neutrophils 81.6 % (42.0-75.0); Hemoglobin 9.2 g/dL (12.0-16.0); Mean Corpuscular HGB CONC 32.1 g/dL (32.0-36.0); Mean Corpuscular Hemoglobin 23.8 pg (27.0-31.0); Mean Corpuscular Volume 74.1 fl (78.0-98.0); Mean Platelet Volume 8.9 fL (7.4-10.4); Platelet Count 307 10x3/uL (130-400); RBC Distribution Width 16.2 % (11.5-14.5); Red Blood Cell (RBC) Count 3.86 mill/uL (4.20-5.40); White Blood Cell (WBC) Count 8.7 10x3/uL (4.8-10.8)
[2022-06-21] MEDS ORDERED: LORazepam 2 MG/ML SYR.(CARPUJECT) ONE ×2 (13:57→14:21)
[2022-06-21 14:04] LABS: ALT (SGPT) 17 U/L (8-55); AST (SGOT) 24 U/L (5-34); Alcohol Less than 10 mg/dL (Less than 10); Alkaline Phosphatase 93 U/L (40-110); Anion Gap 14 mmol/L (10-20); BUN (Urea Nitrogen) 16 mg/dL (7.0-18.7); Bilirubin, Total 0.3 mg/dL (0.2-1.2); Calc. Creatinine Clearance 0 mL/min (70-130); Calcium 8.9 mg/dL (7.8-10.44); Carbon Dioxide 19 mmol/L (22-29); Chloride 107 mmol/L (98-107); Estimated GFR 108; Globulin 4.2 g/dL (2.4-3.5); Glucose 85 mg/dL (70-105); Potassium 3.4 mmol/L (3.5-5.1); Protein, Total 8.2 g/dL (6.0-8.3); Salicylate Less than 8.0 mg/dL (15.0-30.0); Sodium 137 mmol/L (136-145)
[2022-06-21 14:11] LABS: Anisocytosis SLIGHT = 6-15 cells (100X) (0-5/hpf); Hypochromia SLIGHT = 6-15 cells (100X) (0-5/hpf); MDiff Complete? YES; Microcytosis SLIGHT = 6-15 cells (100X) (0-5/hpf); Ovalocytes SLIGHT = 2-5 cells (100X) (0-1/hpf); Platelet Morphology Comment Appears Adequate; Polychromasia SLIGHT = 2-3 cells (100X) (0-2/hpf); Tear Drops SLIGHT = 2-5 cells (100X) (0-1/hpf)
[2022-06-21] MEDS ORDERED: Haloperidol Lactate 5 MG/ML VIAL ONE (14:21)
[2022-06-21 14:35] LABS: Clarity Hazy (Clear); Glucose, Urine (Dipstick) Unable to Interpret mg/dL (Negative); Ketone, Urine Unable to Interpret mg/dL (Negative); Leukocyte Unable to Interpret Leu/uL (Negative); Nitrite Unable to Interpret (Negative); Protein, Urine (Dipstick) Unable to Interpret mg/dL (Neg-Trace); pH, Urine 5.7 (5.0-9.0)
[2022-06-21 14:36] LABS: Bilirubin Unable to Interpret (Negative); Blood, Urine Unable to Interpret (Negative); Urobilinogen UNABLE TO INTERPRET mg/dL (Less than 2)
[2022-06-21 14:37] LABS: Amphetamine Detected (NotDetected); Bacteria/HPF Rare-Few HPF (None Seen); Barbiturates Screen Not Detected (NotDetected); Benzodiazepine Screen Detected (NotDetected); Cocaine Metabolite Screen Detected (NotDetected); Methadone Not Detected (NotDetected); Methamphetamine Detected (NotDetected); Opiate Screen Not Detected (NotDetected); Oxycodone Screen Not Detected (NotDetected); Phencyclidine (PCP) Detected (NotDetected); RBC/HPF 0-3 HPF (0-3); THC/Cannabinoid Screen Not Detected (NotDetected); Tricyclic Screen Not Detected (NotDetected); WBC/HPF 0-3 HPF (0-3)
[2022-06-21 14:38] LABS: Pregnancy Test - Urine (BHCG) Negative (Negative); Pregu Control Background? CLEAR/WHITE (CLR/WHITE); Pregu Control Bar Appear? YES (CONTROL BAR)
== END 2022-06-22 02:20 | disposition home or self-care (01) ==
LOC: ERS 11:30
DX: F19.10 Other psychoactive substance abuse, uncomplicated (principal); F17.210 Nicotine dependence, cigarettes, uncomplicated
CPT/HCPCS: 36415; 80053; 80306; 80307; 81003; 81015; 81025; 84443; 85025; 96374; 96375; J1630; J2060

== ENCOUNTER 2022-07-06 21:33 | Inpatient (IN) | payer SELFPAY ==
[2022-07-06 22:08] LABS: Actual Bicarbonate (HCO3v) 19 mEq/L (22-28); Analyzer IN Cardio ER; Base Excess -7.7 mEq/L (-2.0 to +3.0); Calcium, Ionized (venous) 1.07 mmol/L (1.16-1.32); Chloride (VBG) 113 mmol/L (98-106); Hemoglobin (Hb) 9.4 g/dL (11.7-15.5); Potassium (VBG) 3.59 mmol/L (3.70-5.30); Sodium 140.3 mmol/L (133-146); pH (venous) 7.28 (7.32-7.43)
[2022-07-06 22:31] LABS: #Basophils 0.1 thou/uL (0.0-0.2); #Eosinphils 0.2 thou/uL (0.0-0.7); #Lymphocytes 1.7 thou/uL (1.20-3.40); #Monocytes 0.5 thou/uL (0.11-0.59); #Neutrophils 9.2 thou/uL (1.40-6.50); %Basophils 0.8 % (0.0-1.0); %Eosinophils 1.8 % (0.0-10.0); %Lymphocytes 14.2 % (21.0-51.0); %Monocytes 4.4 % (0.0-10.0); %Neutrophils 78.8 % (42.0-75.0); Hemoglobin 8.8 g/dL (12.0-16.0); Mean Corpuscular HGB CONC 32.3 g/dL (32.0-36.0); Mean Corpuscular Hemoglobin 24.1 pg (27.0-31.0); Mean Corpuscular Volume 74.7 fl (78.0-98.0); Mean Platelet Volume 9.5 fL (7.4-10.4); Platelet Count 213 10x3/uL (130-400); RBC Distribution Width 16.1 % (11.5-14.5); Red Blood Cell (RBC) Count 3.63 mill/uL (4.20-5.40); White Blood Cell (WBC) Count 11.7 10x3/uL (4.8-10.8)
[2022-07-06 23:08] LABS: ALT (SGPT) 15 U/L (8-55); AST (SGOT) 26 U/L (5-34); Acetaminophen Less than 10.0 mcg/mL (10.0-30.0); Albumin 3.5 g/dL (3.5-5.0); Alcohol Less than 10 mg/dL (Less than 10); Alkaline Phosphatase 72 U/L (40-110); Anion Gap 14 mmol/L (10-20); BUN (Urea Nitrogen) 13 mg/dL (7.0-18.7); Bilirubin, Total 0.2 mg/dL (0.2-1.2); Calc. Creatinine Clearance 0 mL/min (70-130); Calcium 7.9 mg/dL (7.8-10.44); Carbon Dioxide 16 mmol/L (22-29); Chloride 114 mmol/L (98-107); Estimated GFR 119; Globulin 2.6 g/dL (2.4-3.5); Glucose 95 mg/dL (70-105); Potassium 3.5 mmol/L (3.5-5.1); Protein, Total 6.1 g/dL (6.0-8.3); Salicylate Less than 8.0 mg/dL (15.0-30.0); Sodium 140 mmol/L (136-145)
[2022-07-07] MEDS ORDERED: Acetaminophen 650 MG Suppository PR PRN (00:33)
[2022-07-07] MEDS ORDERED: Ondansetron ODT 4 MG TAB PO PRN (00:33)
[2022-07-07] MEDS ORDERED: Ondansetron PF 4 MG/2 ML Vial IVP PRN (00:33)
[2022-07-07] MEDS ORDERED: Sodium Chloride 0.9% 500 ML IV SCH (00:45)
[2022-07-07 01:24] VITALS: BMI 29.0
[2022-07-07 05:38] LABS: #Basophils 0.1 thou/uL (0.0-0.2); #Eosinphils 0.4 thou/uL (0.0-0.7); #Lymphocytes 2.5 thou/uL (1.20-3.40); #Monocytes 0.5 thou/uL (0.11-0.59); #Neutrophils 4.1 thou/uL (1.40-6.50); %Basophils 1.5 % (0.0-1.0); %Eosinophils 5.8 % (0.0-10.0); %Lymphocytes 32.3 % (21.0-51.0); %Monocytes 6.8 % (0.0-10.0); %Neutrophils 53.5 % (42.0-75.0); Hemoglobin 8.1 g/dL (12.0-16.0); Mean Corpuscular HGB CONC 31.9 g/dL (32.0-36.0); Mean Corpuscular Hemoglobin 23.8 pg (27.0-31.0); Mean Corpuscular Volume 74.7 fl (78.0-98.0); Platelet Count 195 10x3/uL (130-400); RBC Distribution Width 15.9 % (11.5-14.5); Red Blood Cell (RBC) Count 3.41 mill/uL (4.20-5.40); White Blood Cell (WBC) Count 7.7 10x3/uL (4.8-10.8)
[2022-07-07 06:01] LABS: Anion Gap 10 mmol/L (10-20); BUN (Urea Nitrogen) 12 mg/dL (7.0-18.7); Calc. Creatinine Clearance 164 mL/min (70-130); Calcium 8.1 mg/dL (7.8-10.44); Carbon Dioxide 19 mmol/L (22-29); Chloride 114 mmol/L (98-107); Estimated GFR 121; Glucose 72 mg/dL (70-105); Iron 32 ug/dL (50-170); Iron Binding Capacity, Total 380 mcg/dL (265-497); Potassium 3.2 mmol/L (3.5-5.1); Sodium 140 mmol/L (136-145)
[2022-07-07] MEDS ORDERED: NS 0.9% w/ 40 MEQ KCL 1,000 ML IV SCH (09:45)
[2022-07-07] MEDS ORDERED: Potassium Chloride 20 MEQ TAB PO SCH (09:45)
[2022-07-07] MEDS ORDERED: Electrolyte Replacement Protocol 1 EACH FS SCH (09:45)
[2022-07-07 10:31] LABS: Magnesium 1.6 mg/dL (1.6-2.6)
[2022-07-07] MEDS ORDERED: Magnesium 2 GM/50 ML(in water) 2 GM in Premix Bag 1 BAG IVPB SCH (12:00)
[2022-07-07] MEDS ORDERED: Diazepam 10 MG/2 ML SYRINGE IVP PRN ×2 (18:05→18:07)
[2022-07-07] MEDS: 1/2 NS w/KCL 20 mEq 1,000 ML IV SCH (19:00)
[2022-07-07 21:18] LABS: Potassium 3.5 mmol/L (3.5-5.1)
[2022-07-07] MEDS: Acetaminophen 325 MG TAB PO PRN (21:47)
[2022-07-07] MEDS: Lorazepam 2 MG/ML VIAL SLOW IVP PRN (23:08)
[2022-07-08] MEDS: 1/2 NS w/KCL 20 mEq 1,000 ML IV SCH ×2 (04:44→16:19)
[2022-07-08 05:12] LABS: #Basophils 0.1 thou/uL (0.0-0.2); #Eosinphils 0.3 thou/uL (0.0-0.7); #Lymphocytes 1.8 thou/uL (1.20-3.40); #Monocytes 0.4 thou/uL (0.11-0.59); #Neutrophils 3.9 thou/uL (1.40-6.50); %Basophils 1.2 % (0.0-1.0); %Eosinophils 4.5 % (0.0-10.0); %Lymphocytes 28.2 % (21.0-51.0); %Monocytes 6.1 % (0.0-10.0); Hemoglobin 8.9 g/dL (12.0-16.0); Mean Corpuscular Volume 75.3 fl (78.0-98.0); Mean Platelet Volume 9.3 fL (7.4-10.4); Platelet Count 205 10x3/uL (130-400); White Blood Cell (WBC) Count 6.5 10x3/uL (4.8-10.8)
[2022-07-08 05:32] LABS: Anion Gap 11 mmol/L (10-20); BUN (Urea Nitrogen) 8 mg/dL (7.0-18.7); Calc. Creatinine Clearance 192 mL/min (70-130); Calcium 8.1 mg/dL (7.8-10.44); Carbon Dioxide 19 mmol/L (22-29); Chloride 112 mmol/L (98-107); Estimated GFR 126; Glucose 92 mg/dL (70-105); Magnesium 1.8 mg/dL (1.6-2.6); Potassium 3.8 mmol/L (3.5-5.1); Sodium 138 mmol/L (136-145)
[2022-07-08] MEDS ORDERED: Magnesium 2 GM/50 ML(in water) 2 GM in Premix Bag 1 BAG IVPB SCH (08:00)
[2022-07-08] MEDS: Docusate 100 MG CAP PO SCH ×2 (08:12→20:42)
[2022-07-08] MEDS: Ferrous Gluconate 324 MG TAB PO SCH (08:12)
[2022-07-08] MEDS: Ascorbic Acid 500 mg Chewable Tablet PO SCH (08:12)
[2022-07-08] MEDS: Lorazepam 2 MG/ML VIAL SLOW IVP PRN ×3 (08:12→20:48)
[2022-07-08] MEDS ORDERED: Nicotine 21 MG PATCH TOP SCH (16:15)
[2022-07-09] MEDS: 1/2 NS w/KCL 20 mEq 1,000 ML IV SCH ×2 (02:11→07:53)
[2022-07-09] MEDS: Lorazepam 2 MG/ML VIAL SLOW IVP PRN ×2 (04:46→07:52)
[2022-07-09 07:17] LABS: Magnesium 1.9 mg/dL (1.6-2.6)
[2022-07-09] MEDS: Ascorbic Acid 500 mg Chewable Tablet PO SCH (07:52)
[2022-07-09] MEDS: Ferrous Gluconate 324 MG TAB PO SCH (07:52)
[2022-07-09] MEDS: Docusate 100 MG CAP PO SCH (07:52)
[2022-07-09] MEDS ORDERED: Magnesium 2 GM/50 ML(in water) 2 GM in Premix Bag 1 BAG IVPB SCH (08:00)
[2022-07-09 08:15] VITALS: BP 132/63; TEMP 98.1
[2022-07-09] MEDS: Acetaminophen 325 MG TAB PO PRN (08:58)
== END 2022-07-09 11:43 | disposition home or self-care (01) | DRG 917 ==
LOC: ERS 21:33 → 2SW 23:25 → ERHOLD 23:31 → 2SW 07-07 11:10 → OBSVTOIN 07-07 15:46
PROVIDERS: ADMIT Family Medicine; ATTEND Family Medicine
PROC: HZ2ZZZZ Detoxification Services for Substance Abuse Treatment (ICD-10-PCS; principal; 2022-07-07)
DX: T43.651A Poisoning by methamphetamines accidental (unintentional), initial encounter (principal); G92.8 Other toxic encephalopathy; F15.13 Other stimulant abuse with withdrawal; F11.13 Opioid abuse with withdrawal; T40.421A Poisoning by tramadol, accidental (unintentional), initial encounter; E87.6 Hypokalemia; D50.9 Iron deficiency anemia, unspecified; F31.9 Bipolar disorder, unspecified; F20.9 Schizophrenia, unspecified; G40.909 Epilepsy, unspecified, not intractable, without status epilepticus; E83.42 Hypomagnesemia; E87.8 Other disorders of electrolyte and fluid balance, not elsewhere classified; F12.13 Cannabis abuse with withdrawal; F17.210 Nicotine dependence, cigarettes, uncomplicated; D72.829 Elevated white blood cell count, unspecified; Z91.013 Allergy to seafood; Z79.899 Other long term (current) drug therapy; Z90.49 Acquired absence of other specified parts of digestive tract; Z98.51 Tubal ligation status; Z98.84 Bariatric surgery status
CPT/HCPCS: 36415; 36416; 80048; 80307; 82728; 82805; 83540; 83550; 83605; 83735; 85025; 93005; 95712; 95819; 95957; 96374; G0378; J2060; J3360; J3475; J3480